=== PATIENT | male | born 1990 | race Hispanic/Latino ===

== ENCOUNTER 2017-03-10 04:48 | Emergency (ER) | payer SELFPAY ==
[2017-03-10] MEDS ORDERED: THIAMINE 200 MG/2 ML IM ONE (04:54)
[2017-03-10] MEDS ORDERED: Dextrose 5%-Lr IV Solution 1000 ML 1,000 ML IV SCH (05:00)
[2017-03-10 05:22] LABS: VBG BASE EXCESS -3.4 (-2.0-2.0); VBG CARBOXYHEMOGLOBIN 3.3 % T HGB (0.0-6.9); VBG HCO3- 23.2 meq/L (22-28); VBG HEMOGLOBIN 15.8; VBG O2 SATURATION 84.8 (95-100); VBG POTASSIUM 3.9 (3.5-5.1); VBG pH 7.31 (7.32-7.42)
[2017-03-10 05:26] LABS: Bilirubin NEGATIVE (NEGATIVE); Blood NEGATIVE Ery/ul (0-5); COMPLETE URINE MICROSCOPIC? NO; Collection Type CCMS; Glucose NEGATIVE (NEGATIVE); Leukocyte Esterase NEGATIVE (NEGATIVE)
[2017-03-10 05:27] LABS: BASOPHIL % 0.7 % (0.0-0.4); Eosinophil % 0.2 % (0.00-5.0); Granulocytes % 57.3 % (36.0-66.0); Mean Corpuscular Hemoglobin 32.4 pg (26-32); Mean Platelet Volume 9.4 fl (6-9.5); Monocytes % 14.8 % (0.0-12.0); Platelet Count 258 K/mm3 (150-450); Red Blood Count 4.63 M/mm3 (4.1-5.6); Red Cell Distribution Width 12.9 % (11.5-14.0); White Blood Count 5.5 K/mm3 (4.0-10.5)
--- NOTE | 2017-03-10 05:33 | ERPHSYRPT ---
- History of Present Illness Time Seen by Provider: 03/10/17 04:54 Source: patient, EMS, police Physician History: CC: unresponsive HX: 27 y/o man was riding home from [address] in a taxi cab. When the taxi arrived in [place] he was asleep and unresponsive. Police found him breathing but not responsive. EMS arrived and gave narcan 2mg IV and he gradually awoke. He reports drinking 7 Garibay beers. He denies injury. 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 Pt gives limited hx. He is cooperative on arrival. Timing/Duration: today Severity: moderate Allergies/Adverse Reactions: UNOBTAINABLE Allergy (Unverified 03/10/17 05:27) Home Medications: Unobtainable [Unobtainable] 03/10/17 [History] - Review of Systems Constitutional: No Symptoms Respiratory: No Cough, No Dyspnea Cardiac: No Chest Pain Abdominal/Gastrointestinal: No Abdominal Pain, No Nausea, No Vomiting Skin: No Rash Psychological: Alcohol Abuse All Other Systems: Reviewed and Negative - Past Medical History Pertinent Past Medical History: No - Social History Exposure to second hand smoke: No (lives in [place]) - Nursing Vital Signs Nursing Vital Signs: Initial Vital Signs Temperature 98.7 F 03/10/17 04:50 Pulse Rate 80 03/10/17 04:50 Respiratory Rate 16 03/10/17 04:50 Blood Pressure 130/78 03/10/17 04:50 O2 Sat by Pulse Oximetry 100 03/10/17 04:50 Pain Scale Pain Intensity 0 - Physical Exam General Appearance: alert Eye Exam: PERRL/EOMI Ears, Nose, Throat Exam: normal ENT inspection, moist mucous membranes Neck Exam: normal inspection, non-tender, supple Respiratory Exam: normal breath sounds, lungs clear Cardiovascular Exam: regular rate/rhythm, No murmur Gastrointestinal/Abdomen Exam: soft, No tenderness, No distention Male Genitalia Exam: normal genitalia Back Exam: normal inspection, normal range of motion Extremity Exam: normal inspection, normal range of motion Neurologic Exam: alert, oriented x 3, cooperative, actuarial consultant II-XII nml as tested, sensation nml, No motor deficits Skin Exam: normal color, warm, dry, No rash - Course Nursing assessment & vital signs reviewed: Yes EKG Interpreted by Me: RATE (74), Sinus Rhythm, NORMAL AXIS, NORMAL INTERVALS ( QTc 432), NORMAL QRS, NORMAL ST-T - Radiology Exams cxr X-ray Interpretation: Reviewed by me, Negative Ordered Tests: Active Orders 24 hr Category Date Time Status CO2 Monitoring STAT Care 03/10/17 04:59 Active Clean Catch Urine Specimen STAT Care 03/10/17 04:54 Active EKG-ER Only STAT Care 03/10/17 04:54 Active IV Insertion STAT Care 03/10/17 04:54 Active Regular Diet Diet 03/10/17 Breakfast Active CHEST 1 VIEW (PORTABLE) Stat Exams 03/10/17 04:55 Taken ACETAMINOPHEN Stat Lab 03/10/17 05:15 Completed CBC W DIFF Stat Lab 03/10/17 05:15 Completed CMP Stat Lab 03/10/17 05:15 Completed ETHYL ALCOHOL Stat Lab 03/10/17 05:15 Completed UA W/RFX UR CULTURE Stat Lab 03/10/17 05:15 Completed Urine Triage Profile Stat Lab 03/10/17 05:15 Completed VENOUS BLOOD GAS Urgent Lab 03/10/17 05:16 Completed Medication Summary Generic Name Dose Route Start Last Admin Trade Name Freq PRN Reason Stop Dose Admin Dextrose/Lactated Ringer's 1,000 mls @ 100 mls/hr 03/10/17 05:00 03/10/17 06: 02 Dextrose 5%-Lr Iv Solution 1000 Ml IV 04/09/17 04:59 100 mls/hr .Q10H ANNABELLE Administration Discontinued Medications Generic Name Dose Route Start Last Admin Trade Name Freq PRN Reason Stop Dose Admin Thiamine HCl 100 mg 03/10/17 04:54 03/10/17 06:02 Thiamine 200 Mg/2 Ml IM 03/10/17 04:55 100 mg STAT ONE Administration Thiamine HCl Confirm 03/10/17 05:57 Thiamine 200 Mg/2 Ml Administered 03/10/17 05:58 Dose 200 mg .ROUTE .STK-MED ONE Lab/Rad Data: Laboratory Result Diagrams 03/10/17 05:15 03/10/17 05:15 Laboratory Results 03/10/17 03/10/17 03/10/17 Range/Units 05:16 05:15 05:15 WBC (4.0-10.5) K/mm3 RBC (4.1-5.6) M/mm3 Hgb (12.5-18.0) gm/dl Hct (42-50) % MCV (78-100) fl MCH (26-32) pg MCHC (32-36) g/dl RDW (11.5-14.0) % Plt Count (150-450) K/mm3 MPV (6-9.5) fl Gran % (36.0-66.0) % Lymphocytes % (24.0-44.0) % Monocytes % (0.0-12.0) % Eosinophils % (0.00-5.0) % Basophils % (0.0-0.4) % Basophils # (0-0.4) VBG pH 7.31 L (7.32-7.42) VBG pCO2 at Pat Temp 46 (42-55) mm/Hg VBG pO2 at Pat Temp 49 H (25-40) mm/Hg VBG HCO3 23.2 (22-28) meq/L VBG O2 Sat (Олег) 84.8 L (95-100) VBG Base Excess -3.4 L (-2.0-2.0) VBG Hemoglobin 15.8 VBG Carboxyhemoglobin 3.3 (0.0-6.9) % T HGB POC Potassium 3.9 (3.5-5.1) Sodium (136-145) mEq/L Potassium (3.5-5.1) mEq/L Chloride (98-107) mEq/L Carbon Dioxide (21-32) mEq/L Anion Gap (5-15) MEQ/L BUN (9-20) mg/dL Creatinine (0.55-1.30) mg/dl Estimated GFR ML/MIN Glucose (70-110) MG/DL Calcium (8.5-10.1) mg/dL Total Bilirubin (0.2-1.0) mg/dL AST (15-37) U/L ALT (12-78) U/L Alkaline Phosphatase (46-116) U/L Serum Total Protein (6.4-8.2) gm/dL Albumin (3.4-5.0) g/dL Ur Collection Type CCMS Urine Color YELLOW (YELLOW) Urine Appearance CLEAR (CLEAR) Urine pH 5.0 (5-6) Ur Specific [place] 1.005 (1.005-1.025) Urine Protein NEGATIVE (Negative) Urine Ketones NEGATIVE (NEGATIVE) Urine Blood NEGATIVE (0-5) Humberto/ul Urine Nitrite NEGATIVE (NEGATIVE) Urine Bilirubin NEGATIVE (NEGATIVE) Urine Urobilinogen NORMAL (0-1) mg/dL Ur Leukocyte Esterase NEGATIVE (NEGATIVE) Urine Culture Reflexed NO (NO) Urine Glucose NEGATIVE (NEGATIVE) mg/dL Urine Opiates Level NEG. (NEGATIVE) Ur Methadone NEG. (NEGATIVE) Acetaminophen (10-30) ug/ml Urine Barbiturates NEG. (NEGATIVE) Ur Phencyclidine (PCP) NEG. (NEGATIVE) Urine Amphetamine NEG. (NEGATIVE) U Benzodiazepine Level NEG. (NEGATIVE) Urine Cocaine NEG. (NEGATIVE) Urine Marijuana (THC) NEG. (NEGATIVE) Ethyl Alcohol (0.00-0.01) % Specimen Received 0515 03/10/17 03/10/17 03/10/17 Range/Units 05:15 05:15 WBC 5.5 (4.0-10.5) K/mm3 RBC 4.63 (4.1-5.6) M/mm3 Hgb 15.0 (12.5-18.0) gm/dl Hct 43.5 (42-50) % MCV 94.0 (78-100) fl MCH 32.4 H (26-32) pg MCHC 34.5 (32-36) g/dl RDW 12.9 (11.5-14.0) % Plt Count 258 (150-450) K/mm3 MPV 9.4 (6-9.5) fl Gran % 57.3 (36.0-66.0) % Lymphocytes % 27.0 (24.0-44.0) % Monocytes % 14.8 H (0.0-12.0) % Eosinophils % 0.2 (0.00-5.0) % Basophils % 0.7 (0.0-0.4) % Basophils # 0.04 (0-0.4) VBG pH (7.32-7.42) VBG pCO2 at Pat Temp (42-55) mm/Hg VBG pO2 at Pat Temp (25-40) mm/Hg VBG HCO3 (22-28) meq/L VBG O2 Sat (Олег) (95-100) VBG Base Excess (-2.0-2.0) VBG Hemoglobin VBG Carboxyhemoglobin (0.0-6.9) % T HGB POC Potassium (3.5-5.1) Sodium 142 (136-145) mEq/L Potassium 3.7 (3.5-5.1) mEq/L Chloride 105 (98-107) mEq/L Carbon Dioxide 23.1 (21-32) mEq/L Anion Gap 17.3 H (5-15) MEQ/L BUN 6 L (9-20) mg/dL Creatinine 0.61 (0.55-1.30) mg/dl Estimated GFR > 60 ML/MIN Glucose 104 (70-110) MG/DL Calcium 8.6 (8.5-10.1) mg/dL Total Bilirubin 0.40 (0.2-1.0) mg/dL AST 119 H (15-37) U/L ALT 157 H (12-78) U/L Alkaline Phosphatase 96 (46-116) U/L Serum Total Protein 7.9 (6.4-8.2) gm/dL Albumin 4.3 (3.4-5.0) g/dL Ur Collection Type Urine Color (YELLOW) Urine Appearance (CLEAR) Urine pH (5-6) Ur Specific [place] (1.005-1.025) Urine Protein (Negative) Urine Ketones (NEGATIVE) Urine Blood (0-5) Humberto/ul Urine Nitrite (NEGATIVE) Urine Bilirubin (NEGATIVE) Urine Urobilinogen (0-1) mg/dL Ur Leukocyte Esterase (NEGATIVE) Urine Culture Reflexed (NO) Urine Glucose (NEGATIVE) mg/dL Urine Opiates Level (NEGATIVE) Ur Methadone (NEGATIVE) Acetaminophen < 2.0 L (10-30) ug/ml Urine Barbiturates (NEGATIVE) Ur Phencyclidine (PCP) (NEGATIVE) Urine Amphetamine (NEGATIVE) U Benzodiazepine Level (NEGATIVE) Urine Cocaine (NEGATIVE) Urine Marijuana (THC) (NEGATIVE) Ethyl Alcohol 0.349 H* (0.00-0.01) % Specimen Received - Progress Progress Note: 03/10/17 07:17 Pt stable. Ambulated to . He wants to go home to work by 9AM. He has a family member called to get him. ADvised breakfast and watch for short term and will release later in AM. Counseled pt/family regarding: lab results, diagnosis, need for follow-up - Departure Time of Disposition: 07:20 Departure Disposition: Home Clinical Impression: Alcohol intoxication Qualifiers: Complication of substance-induced condition: uncomplicated Qualified Code(s): F10.920 - Alcohol use, unspecified with intoxication, uncomplicated Condition: Fair Critical Care Time: No Referrals: DOCTOR,NO FAMILY [NON-STAFF PHY W/O PRIVILEGES] - Instructions: Alcohol Abuse and Alcoholism Additional Instructions: No driving. Return for problems or concerns.
[2017-03-10 05:48] LABS: ACETAMINOPHEN < 2.0 ug/ml (10-30); ALBUMIN 4.3 g/dL (3.4-5.0); ALKALINE PHOSPHATASE 96 U/L (46-116); ANION GAP 17.3 MEQ/L (5-15); BLOOD UREA NITROGEN 6 mg/dL (9-20); CHLORIDE 105 mEq/L (98-107); Carbon Dioxide 23.1 mEq/L (21-32); ETHYL ALCOHOL 0.349 % (0.00-0.01); Glucose 104 MG/DL (70-110); Potassium 3.7 mEq/L (3.5-5.1); SGOT/AST 119 U/L (15-37); SGPT/ALT 157 U/L (12-78); SODIUM 142 mEq/L (136-145); Total Protein 7.9 gm/dL (6.4-8.2)
[2017-03-10 05:51] LABS: ADD URINE CULTURE? NO (NO)
[2017-03-10] MEDS ORDERED: Dextrose 5%-Lr IV Solution 1000 ML 1,000 ML IV ONE (05:57)
[2017-03-10] MEDS ORDERED: THIAMINE 200 MG/2 ML ONE (05:57)
[2017-03-10] MEDS ORDERED: NARCAN 1 MG/ML IV ONE (07:44)
[2017-03-10] MEDS ORDERED: NARCAN 1 MG/ML ONE (07:46)
[2017-03-10 07:52] VITALS: BP 105/71; PULSE 77; O2SAT 96
--- NOTE | 2017-03-10 09:55 | XRAY ---
Indication: Altered mental status. Intoxication. Comparison: None Portable chest underinflated and clear. Heart is not enlarged. Bony thorax intact. Impression: Nonacute underinflated chest.
== END 2017-03-10 09:44 | disposition home or self-care (01) ==
LOC: ED 04:48
DX: F10.920 Alcohol use, unspecified with intoxication, uncomplicated (principal)
CPT/HCPCS: 36000; 36415; 71010; 80053; 80307; 81002; 82805; 85025; 93005; 94770; 96360; 96361; 99284; G0481; J2310